=== PATIENT | male | born 1975 | race Two or more races ===

== ENCOUNTER 2018-08-21 21:33 | Emergency (ER) | payer SELFPAY ==
[~2018-08-21] VITALS: Ht 177.8 cm; Wt 100.0 kg
[2018-08-21 23:42] LABS: CHLORIDE 100 mEq/L (98-107)
[2018-08-21 23:50] LABS: BASOPHILS % 0.6 % (0.0-2.0); EOSINOPHILS % 0.6 % (0.0-5.0); HEMATOCRIT. 42.1 % (42.0-52.0); HEMOGLOBIN. 15.4 g/dL (14.0-18.0); LYMPHOCYTES % 28.6 % (20.0-50.0); MEAN CORPUSCULAR HEMOGLOBIN 33.9 pg (28.0-32.0); MEAN CORPUSCULAR VOLUME 92.6 fL (80.0-94.0); MEAN PLATELET VOLUME 8.5 fl (7.4-10.4); MONOCYTES % 7.2 % (2.0-8.0); PLATELET 184 x1000/uL (130-400); RED BLOOD CELL COUNT 4.54 mill/uL (4.7-6.1); RED CELL DISTRIBUTION WIDTH 12.2 % (11.6-14.6)
[2018-08-22 03:32] VITALS: BP 130/89
== END 2018-08-22 03:34 | disposition home or self-care (01) ==
LOC: ER 21:33
DX: R55 Syncope and collapse (principal); F10.10 Alcohol abuse, uncomplicated; F12.10 Cannabis abuse, uncomplicated
CPT/HCPCS: 36415; 71045; 83880; 84484; 93005; 99285